=== PATIENT | female | born 1950 | race African-American/Black ===

== ENCOUNTER 2018-01-13 15:11 | Inpatient (IN) | payer OTHER, MEDICARE ==
[~2018-01-13] VITALS: Ht 165.1 cm; Wt 59.9 kg
[~2018-01-13 15:11] MED LIST: CIPRO250 M1 PO; CIPROFLOXACIN500 M1 PO; GLYBURID-METFO1 EAC3 PO; HYDROCHLOROTHIA25 M1 PO; NORCO 5-325 TA1 EACH PO; NORVASC10 MG PO; NOVOLIN 70100 UNIT/5; NOVOLOG100 UNIT/1; OCUVITE TABLET1 EAC1; OCUVITE TABLET1 EAC1 PO; PYRIDIUM200 MG PO; ZESTRIL20 MG PO; ZPAK PO
[2018-01-13 15:13] VITALS: BP 116/65
[2018-01-13] MEDS ORDERED: ZOCOR20 MG PO (15:15)
[2018-01-13] MEDS ORDERED: LEXAPRO20 MG PO (15:15)
[2018-01-13 15:50] LABS: ABSOLUTE BASOPHILS 0.1 thou/uL (0.0-0.2); ABSOLUTE EOSINOPHILS 0.1 thou/uL (0.0-0.7); ABSOLUTE LYMPHOCYTES 2.5 thou/uL (0.8-5.3); ABSOLUTE MONOCYTES 0.7 thou/uL (0.0-1.2); ABSOLUTE NEUTROPHILS 3.5 thou/uL (1.6-8.1); BASOPHILS 0.8 %; EOSINOPHILS 1.5 %; HEMATOCRIT 47.1 % (37.0-47.0); HEMOGLOBIN 16.1 gm/dL (12.0-15.0); LYMPHOCYTES 36.4 %; MCH 32.6 pg (26.0-34.0); MCHC 34.2 g/dL (28.0-37.0); MCV 95.4 fL (80.0-100.0); MONOCYTES 10.7 %; NUCLEATED RBCS 0 /100WBC; PLATELET COUNT* 289 thou/uL (150-400); POLYS 50.6 %; RBC 4.94 mil/uL (4.20-5.00); WBC 6.9 thou/uL (4.0-11.0)
[2018-01-13 15:56] LABS: ANION GAP 9 mmol/L (7-16); BUN 18 mg/dL (7-18); CALCIUM 9.8 mg/dL (8.5-10.1); CHLORIDE 98 mmol/L (98-107); CO2 30 mmol/L (21-32); CREATININE 0.8 mg/dL (0.6-1.3); GLUCOSE 187 mg/dL (70-99); POTASSIUM 3.5 mmol/L (3.5-5.1); SODIUM 137 mmol/L (136-145)
[2018-01-13 16:00] LABS: APTT 24.4 Seconds (25.0-31.3); INR 1.1; PROTIME 10.4 Seconds (9.20-11.50)
[2018-01-13 16:14] LABS: ALBUMIN 4.1 g/dL (3.4-5.0); ALKALINE PHOSPHATASE 81 U/L (46-116); CK-MB MASS 2.5 ng/mL (<0.5-3.6); LIPASE 56 U/L (73-393); NT-PRO BRAIN NAT PEPTIDE 74 pg/mL (<300); SGOT 14 U/L (15-37); SGPT 22 U/L (30-65); TOTAL BILIRUBIN 0.3 mg/dL (<0.1-1.0); TOTAL PROTEIN 7.9 g/dL (6.4-8.2); TROPONIN-I LEVEL <0.06 ng/mL (<0.06)
[2018-01-13 17:49] VITALS: BP 133/63
[2018-01-13] MEDS ORDERED: NOVOLIN 70100 UNIT/5 SUBQ (17:52)
[2018-01-13] MEDS ORDERED: LANTUS100 UNIT/M SUBQ (17:53)
[2018-01-13] MEDS ORDERED: NORCO 7.5-3251 EACH PO (17:53)
[2018-01-13 20:00] VITALS: BP 125/50
[2018-01-14] VITALS (16 sets, daily range): BP systolic 105–156; BP diastolic 54–94
[2018-01-14 11:37] LABS: CHOLESTEROL 177 mg/dL (<200); HDL CHOLESTEROL 60 mg/dL (>40); LDL CHOLESTEROL 97 mg/dL (<100); TRIGLYCERIDE 103 mg/dL (<150); VLDL 21 mg/dL (<40)
[2018-01-14 11:41] LABS: SERUM ASSESSMENT Clear
--- NOTE | 2018-01-14 14:30 | EKG ---
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: Urvashi CRUZ : 1950 Requested By: Je Zuluaga Order Number: [id number] MD: Sridhar Brooke Measurements Intervals [place] Rate: 71 P: 61 WI: 158 QRS: 42 QRSD: 100 T: -44 QT: 481 QTc: 523 Interpretive Statements Sinus rhythm Nonspecific T abnormalities, inferior leads Prolonged QT interval Compared to ECG 05/17/2013 14:02:11 T-wave abnormality now present Prolonged QT interval now present Electronically Signed On 01-14-2018 14:30:31 CDT by Sridhar Brooke [email or web address] <ELECTRONICALLY SIGNED> By: Sridhar Brooke MD, [facility] 01/14/18 1430 1514 1514 Sridhar Brooke MD, [facility] /EPI
--- NOTE | 2018-01-14 15:08 | 2DMMODE ---
[place] [address] 2 D/M-MODE ECHOCARDIOGRAM Name: HERNANDEZFAY CLAIRE Room: [address] IN [facility]#: [id number] Admission: 01/13/18 Attend Phys: Christine Olguin, Discharge: Date of : 48 Date of Service: 01/14/18 1508 Report #: [id number] THIS REPORT FOR: //name// APPROVED REPORT Study performed: 01/14/2018 11:23:26 EXAM: Comprehensive 2D, Doppler, and color-flow Echocardiogram Patient Location: In-Patient Room #: 202 Status: routine BSA: 1.66 HR: 62 bpm BP: 134/59 mmHg Rhythm: NSR Other Information Study Quality: Good Indications Chest Pain 2D Dimensions LVEF(%): 42.44 (>50%) IVSd: 9.09 (7-11mm) LVOT Diam: 18.51 (18-24mm) LVDd: 42.53 mm PWd: 10.26 (7-11mm) LVDs: 33.75 (25-40mm) Aortic Root: 26.75 mm Goff's LVEF: 42.44 % Volumes Left Atrial Volume (Systole) LA ESV Index: 37.20 mL/m2 Aortic Valve AoV Peak Willy.: 1.45 m/s AO Peak Gr.: 8.46 mmHg LVOT Max P.78 mmHg AO Mean Gr.: 4.47 mmHg LVOT Mean P.15 mmHg LVOT Max V: 1.09 m/s AO V2 VTI: 32.77 cm LVOT Mean V: 0.66 m/s INKHIL (VTI): 2.14 cm2 LVOT V1 VTI: 26.02 cm Mitral Valve E/A Ratio: 1.07 [place] [address] 2 D/M-MODE ECHOCARDIOGRAM Name: FAY HERNANDEZ Room: [address] IN .R.#: [id number] Admission: 01/13/18 Attend Phys: Christine Olguin, Discharge: Date of : 48 Date of Service: 01/14/18 1508 Report #: [id number] MV Decel. Time: 192.69 ms MV E Max Willy.: 0.98 m/s MV PHT: 55.88 ms MVA (PHT): 3.94 cm2 TDI E/Lateral E': 6.53 E/Medial E': 9.80 Medial E' Willy.: 0.10 m/s Lateral E' Willy.: 0.15 m/s Pulmonary Valve PV Peak Willy.: 0.88 m/s PV Peak Gr.: 3.08 mmHg Left Ventricle The left ventricle is normal size. There is normal LV segmental wall motion. There is normal left ventricular wall thickness. Left ventricular systolic function is normal. The left ventricular ejection fraction is within the normal range. LVEF is 55-60%. The left ventricular diastolic function is normal. Right Ventricle The right ventricle is normal size. The right ventricular systolic function is normal. Atria Left atrium is mildly dilated. The right atrium size is normal. Aortic Valve The aortic valve is normal in structure. No aortic regurgitation is present. There is no aortic valvular stenosis. Mitral Valve There is mitral annular calcification. Trace mitral regurgitation. No evidence of mitral valve stenosis. Tricuspid Valve The tricuspid valve is normal in structure. Unable to assess PA pressure. Trace tricuspid regurgitation. Pulmonic Valve The pulmonary valve is normal in structure. There is no pulmonic valvular regurgitation. Great Vessels The aortic root is normal in size. IVC [place] [address] 2 D/M-MODE ECHOCARDIOGRAM Name: FAY HERNANDEZ Room: [address] IN [facility].#: [id number] Admission: 01/13/18 Attend Phys: Christine Olguin, Discharge: Date of : 48 Date of Service: 01/14/18 1508 Report #: [id number] collapses with >50% inspiration Pericardium There is no pericardial effusion. <Conclusion> LVEF is 55-60%. There is normal LV segmental wall motion. Left atrium is mildly dilated. No aortic regurgitation is present. There is no aortic valvular stenosis. There is mitral annular calcification. Trace mitral regurgitation. No evidence of mitral valve stenosis. <ELECTRONICALLY SIGNED> By: Sridhar Brooke MD, FACC 01/14/18 1508 1508 1508 Sridhar Brooke MD, FACC /INF
[2018-01-15] VITALS: BP 152/58
[2018-01-15 04:50] VITALS: BP 125/49
[2018-01-15 05:04] LABS: HEMATOCRIT 41.4 % (37.0-47.0); MCH 32.3 pg (26.0-34.0); MCHC 33.9 g/dL (28.0-37.0); RBC 4.36 mil/uL (4.20-5.00); RDW-CV 12.7 % (10.5-14.5); WBC 6.3 thou/uL (4.0-11.0)
[2018-01-15 05:10] LABS: HEMOGLOBIN 14.1 gm/dL (12.0-15.0)
[2018-01-15 05:59] LABS: ALBUMIN 2.9 g/dL (3.4-5.0); CALCIUM 8.6 mg/dL (8.5-10.1); CREATININE 0.7 mg/dL (0.6-1.3); POTASSIUM 3.7 mmol/L (3.5-5.1); TOTAL BILIRUBIN 0.3 mg/dL (<0.1-1.0); TOTAL PROTEIN 5.7 g/dL (6.4-8.2)
[2018-01-15 06:03] LABS: TROPONIN-I LEVEL 3.35 ng/mL (<0.06)
[2018-01-15 08:06] VITALS: BP 145/76
[2018-01-15 09:57] VITALS: BP 134/56
[2018-01-15] MEDS ORDERED: BRILINTA90 MG PO (10:36)
[2018-01-15] MEDS ORDERED: NITROGLYCERIN0.4 MG SUBLING (10:36)
[2018-01-15] MEDS ORDERED: ASPIR 8181 MG PO (10:36)
[2018-01-15] MEDS ORDERED: PANTOPRAZOLE SO40 M1 PO (10:36)
[2018-01-15 12:00] VITALS: BP 132/62
[2018-01-15 12:02] VITALS: BP 134/56
[2018-01-15] MEDS ORDERED: LEXAPRO 10 MG T10 M1 PO (13:59)
--- NOTE | 2018-01-16 12:52 | EKG ---
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[place] : 1950 Requested By: Maik Giordano Order Number: [id number] Berry MD: Maik Giordano Measurements Intervals [place] Rate: 57 P: 68 VA: 139 QRS: 38 QRSD: 87 T: 53 QT: 484 QTc: 472 Interpretive Statements Sinus rhythm Minimal ST elevation, inferior leads Compared to ECG 01/13/2018 15:14:58 ST (T wave) deviation now present T-wave abnormality no longer present Prolonged QT interval no longer present Electronically Signed On 01-16-2018 12:52:19 CDT by Maik Giordano [email or web address] <ELECTRONICALLY SIGNED> By: Maik Giordano MD, FAC 01/16/18 1252 1540 1540 Maik Giordano MD, FAC /EPI
--- NOTE | 2018-01-16 13:34 | CON ---
[address] [address] CONSULTATION Name: FAY HERNANDEZ Room: [address] IN M.R.#: [id number] Admission: 01/13/18 Attend Phys: Christine Olguin MD Discharge: 01/15/18 Date of : 48 Report #: [id number] THIS REPORT FOR: //name// CC: Didi Olguin DATE OF SERVICE: 01/13/2018 CHIEF COMPLAINT: Chest discomfort. HISTORY OF PRESENT ILLNESS: The patient is a 67-year-old with insulin requiring diabetes who presented with a resting onset of nausea, but no emesis and severe left chest discomfort. Her presenting ECG showed diffuse T-wave inversion. This morning, she is mostly asymptomatic, although off and on through the night she had paroxysms of nonradiating chest discomfort described as a pressure. She has some mild shortness of breath with activity, but had no prior symptoms of chest discomfort prior to hospitalization. She has numerous cardiovascular risk factors, but no documented history of heart disease. She has a history of insulin requiring diabetes since the early . She has been followed by Dr. Didi Weathers for this. She is a half pack per day tobacco smoker. She has hypertension, which she has been treated since the early 1999s as well and most recently had been placed on a statin for hyperlipidemia. She has no history of congestive heart failure. She has no history of carotid vascular disease or claudication type symptoms, but does have some leg cramps with walking. 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 PAST SURGICAL HISTORY: She has not had any recent surgeries. She has had a prior hysterectomy in the . FAMILY HISTORY: Positive for heart disease. Her father of an [place]. SOCIAL HISTORY: She is . 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 She drinks 1-3 glasses of wine per day and the one-half pack per day of tobacco use. HOME MEDICATIONS: Include Novolin 70/30, hydrochlorothiazide, Lexapro, amlodipine, metformin, hydrocodone. REVIEW OF SYSTEMS: CENTRAL NERVOUS SYSTEM: No seizures, no history of stroke or TIA. No weakness or paralysis[place] [address] CONSULTATION Name: FAY HERNANDEZ Room: [address]#: [id number] Admission: 01/13/18 Attend Phys: Christine Olguin MD Discharge: 01/15/18 Date of : 48 Report #: [id number] GENERAL: No weight loss or fevers. RESPIRATORY: She has no documented history of asthma or emphysema. She has no history of pneumonia. CARDIOVASCULAR: Positive chest discomfort, positive dyspnea with exertion, no orthopnea, no PND. ENDOCRINE: Positive diabetes. GASTROINTESTINAL: No nausea, vomiting, hematemesis, melena or ulcers. GENITOURINARY: No dysuria or hematuria. HEMATOLOGIC: No anemia. RENAL: No history of kidney failure. PSYCHIATRIC: No depression or anxiety. MUSCULOSKELETAL: Positive arthritis. SKIN: No rashes. EYES: She does use glasses. EARS, NOSE, THROAT AND MOUTH: No decreased hearing. No bleeding from nose. Positive dentures. PHYSICAL EXAMINATION: VITAL SIGNS: Blood pressure 134/59, pulse is 60 in a sinus rhythm, temperature 36.6, respiratory rate is 18, oxygen on room air is greater than 92%. GENERAL: Pleasant, thin woman, in no apparent distress. EYES: She has the noted ocular changes in the right eye with haziness and opacity. EOMs are intact otherwise. NECK: Supple. No jugular venous distention. Upstrokes are normal. CARDIOVASCULAR: Regular, I cannot hear a murmur or rub. LUNGS: Diminished breath sounds. There are no wheezes or rales. ABDOMEN: Nontender. EXTREMITIES: There is no peripheral edema. Pulses, radial and dorsalis pedis pulses are intact and normal. NEUROLOGIC: There are no focal deficits. Electrocardiogram shows a sinus rhythm with T-wave inversion in the inferior and lateral leads, poor R-wave progression. LABORATORY DATA: Initial cardiac troponin level was normal at 0.06. She has had 3 sets, which were all normal. INR is 1.1. Hemoglobin is 16.1, platelet count is 289,000. Creatinine is 0.8, GFR is 86. Chest x-ray shows normal chest x-ray. IMPRESSION: 1. Unstable angina. Her rest chest discomfort associated with nausea is concerning for angina and she does have an abnormal ECG on presentation, numerous cardiovascular risk factors. Based on her rest symptoms, I am concerned that she may not be able to safely be evaluated with a stress test, so after discussing the risks and benefits, we will proceed with a diagnostic cardiac catheterization. Continue with aspirin therapy. [address] [place] [address] CONSULTATION Name: FAY HERNANDEZ Room: [facility] [place] M.R.#: [id number] Admission: 01/13/18 Attend Phys: Christine Olguin MD Discharge: 01/15/18 Date of : 48 Report #: [id number] 2. Hypertension. We will continue with the calcium channel arabella for the time being. 3. Hyperlipidemia. We will re-survey lipids and treat accordingly. 4. Insulin requiring diabetes. She will continue with sliding scale insulin for the time being while she is n.p.o. 5. Tobacco use. Cessation is strongly recommended. Primary care doctor is Dr. Didi Weathers. <ELECTRONICALLY SIGNED> By: Sridhar Brooke MD, FACC 01/16/18 1334 1040 1606Sridhar Brooke MD, FACC /nt
--- NOTE | 2018-01-16 14:40 | CARD ---
[address] [address] CARDIAC CATH REPORT Name: FAY HERNANDEZ Room: [address] IN ..#: [id number] Admission: 01/13/18 Attend Phys: Christine Olguin MD Discharge: 01/15/18 Date of : 48 Report #: [id number] THIS REPORT FOR: //name// APPROVED REPORT Study performed: 01/14/2018 12:56:50 Patient Details Patient Status: In-Patient Room #: 202 The patient is a 67 year-old female Event Personnel Sridhar Brooke Press Tender [employer], Laurie Mariscal RN Family Health Nurse Practitioner, Liz Garcia, Tracy Jay RTR Pasquale Jaime John Press Tender [employer] Procedures Performed Art Access - R radial artery Left Heart Cath w/or w/o Coronaries [id number] [facility] w/wo Plasty Single PDA [id number] Indication Non-STEMI , Chest pain Risk Factors Hypercholesterolemia, Hypertension Admission/Lab Medications/Medications given during procedure Aspirin, Platelet Aff. Inhib., Angiomax bolus and infusion Procedure Narrative The patient was brought electively to the Cardiac Catheterization Laboratory and was prepped and draped in a sterile manner. The right wrist was infiltrated with 2% Lidocaine subcutaneous anesthesia. A Slender Glidesheath sheath was inserted into the right radial artery. Coronary angiography was performed using coronary diagnostic catheters. The right coronary system was accessed and visualized with a DCR: [place] 4.0 5fr catheter. The left coronary system was accessed and visualized with a JL4 6fr catheter. The left ventricle was accessed and visualized with a PC: Angled Pig 5fr catheter. Left ventricular/Aortic Valve gradient assessed via catheter pullback. Left ventriculogram was performed in PALOMARES projection. The patient tolerated the procedure well and there were no complications associated with the procedure. [place] [address] CARDIAC CATH REPORT Name: FAY HERNANDEZ Room: [address]#: [id number] Admission: 01/13/18 Attend Phys: Christine Olguin MD Discharge: 01/15/18 Date of : 48 Report #: [id number] Intraoperative Conscious Sedation Sedation start time: 13:39 Case end Time: 15:20 Fentanyl 25 mcg Versed 1 mg Fluoro Time: 34.6 minutes Dose: DAP [id number] cGycm2 3167.23 mGy Contrast Type and Amount: Omnipaque 300 ml Coronary Angiography The patient's coronary anatomy is right dominant. Diagnostic Cath Left Main 0% narrowing LAD Mild tortuosity with 40% mid vessel narrowing Circumflex 30% proximal narrowing Right Coronary 40% mid vessel narrowing with 90% stenosis at the origin of the posterior descending branch of the dominant artery artery with local thrombus at the site Left Ventriculography The left ventricle is normal in size with normal contractility. The left ventricular ejection fraction is estimated to be 60%. Left ventricular wall motion abnormalities are not present. There is no mitral insufficiency. Hemodynamics The aortic pressure is 150/86 mmHg with a mean of mmHg. The left ventricular pressure is 172/28 mmHg with a mean of mmHg. The left ventricular end diastolic pressure is 8 mmHg. There was no gradient across the aortic valve upon pullback. Pullback from the left ventricle to the aorta revealed no gradient across the aortic valve. PCI Technique Lesion Percutaneous coronary intervention was performed on the right posterior descending artery. The lesion stenosis prior to intervention was 90% with ADIN 3 flow. A 6F JR 4.0 Guide Catheter was used to engage the ostium. A IG: BMW 190cm Interventional Guidewire was used to cross the lesion. STENT DEPLOYMENT A drug-eluting stent Xience Alpine RX 2.5X8 was inserted and inflated up to 10.00atm for 12seconds. Additional Inflation: 12.00atm for 12seconds. Additional Inflation: 12.00atm for 9[place]. [place] [address] CARDIAC CATH REPORT Name: FAY HERNANDEZ Room: [address] IN M.R.#: [id number] Admission: 01/13/18 Attend Phys: Christine Olguin MD Discharge: 01/15/18 Date of : 48 Report #: [id number] Final angiography reveals 0 % stenosis with ADIN 3 flow. COMMENTS Previously noted thrombus at the origin of the posterior descending branch was no longer noted after deployment of a drug-eluting stent at that site. Conclusion #1 Coronary artery disease characterized by the following: A mild tortuosity with 40% mid LAD narrowing B 30% proximal circumflex narrowing C dominant right coronary artery with 40% mid vessel narrowing and 90% stenosis of the proximal portion of the posterior descending branch with local thrombus at the site #2 normal left ventricular systolic function, estimated ejection fraction being 60% #3 moderate systemic systolic hypertension #4 successful percutaneous coronary intervention with deployment of drug-eluting stent at the site of 90% ostial posterior descending branch stenosis in the dominant right coronary artery with 0% residual narrowing and ADIN-3 flow the distal vessel with no residual thrombus Recommendations Cardiac Risk Reduction Program Aggressive Medical Therapy Medications Administered Aspirin (any) Ticagrelor Diagnostic Cath Approved by: Sridhar Brooke MD Date/Time: 01/16/18 at 1438 hrs. <ELECTRONICALLY SIGNED> By: Maik Giordano MD, FACC 01/16/18 1440 1440 1440Joveena Giordano MD, FACC /INF
--- NOTE | 2018-01-16 14:50 | EKG ---
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 01/16/18 9669 5 5 Maik Giordano MD, [facility] /EPI
== END 2018-01-15 17:15 | disposition home or self-care (01) | DRG 247 ==
LOC: M.ERS 15:11 → M.TBA-ER 17:22 → M.2W 17:22 → M.ERS 17:51 → M.2W 17:59
PROVIDERS: Emergency Medicine Emergency Medical Services; Internal Medicine; Internal Medicine Cardiovascular Disease; ADMIT Internal Medicine
PROC: B2111ZZ Fluoroscopy of Multiple Coronary Arteries using Low Osmolar Contrast (ICD-10-PCS; principal; 2018-01-14)
PROC: B2151ZZ Fluoroscopy of Left Heart using Low Osmolar Contrast (ICD-10-PCS; principal; 2018-01-14)
PROC: 027034Z Dilation of Coronary Artery, One Artery with Drug-eluting Intraluminal Device, Percutaneous Approach (ICD-10-PCS; principal; 2018-01-14)
PROC: 4A023N7 Measurement of Cardiac Sampling and Pressure, Left Heart, Percutaneous Approach (ICD-10-PCS; principal; 2018-01-14)
DX: I25.110 Atherosclerotic heart disease of native coronary artery with unstable angina pectoris (principal); E78.00 Pure hypercholesterolemia, unspecified; I10 Essential (primary) hypertension; K21.9 Gastro-esophageal reflux disease without esophagitis; J44.9 Chronic obstructive pulmonary disease, unspecified; F32.9 Major depressive disorder, single episode, unspecified; F17.210 Nicotine dependence, cigarettes, uncomplicated; E78.5 Hyperlipidemia, unspecified; E11.9 Type 2 diabetes mellitus without complications; Z79.4 Long term (current) use of insulin; Z79.899 Other long term (current) drug therapy; Z79.82 Long term (current) use of aspirin; Z91.040 Latex allergy status; Z90.710 Acquired absence of both cervix and uterus; Z82.49 Family history of ischemic heart disease and other diseases of the circulatory system

== ENCOUNTER → 2018-02-06 | Outpatient (CLI) | payer OTHER, MEDICARE ==
[~2018-02-06] MED LIST changes: +ASPIR 8181 MG PO; +BRILINTA90 MG PO; +LANTUS100 UNIT/M SUBQ; +LEXAPRO 10 MG T10 M1 PO; +LEXAPRO20 MG PO; +NITROGLYCERIN0.4 MG SUBLING; +NORCO 7.5-3251 EACH PO; +NOVOLIN 70100 UNIT/5 SUBQ; +PANTOPRAZOLE SO40 M1 PO; +ZOCOR20 MG PO
== END ==
LOC: M.RAD 14:06
DX: M25.551 Pain in right hip (principal); R20.0 Anesthesia of skin; E11.9 Type 2 diabetes mellitus without complications; J44.9 Chronic obstructive pulmonary disease, unspecified; F32.9 Major depressive disorder, single episode, unspecified; Z90.710 Acquired absence of both cervix and uterus; Z87.891 Personal history of nicotine dependence

== ENCOUNTER → 2018-02-14 | Outpatient (CLI) | payer MEDICARE | LOC: M.MRI 13:04 | DX: M25.851 Other specified joint disorders, right hip (principal) ==

== ENCOUNTER → 2018-02-21 | Outpatient (CLI) | payer MEDICARE | LOC: M.MRI 08:00 | DX: M47.26 Other spondylosis with radiculopathy, lumbar region (principal); M51.16 Intervertebral disc disorders with radiculopathy, lumbar region; M48.062 Spinal stenosis, lumbar region with neurogenic claudication; E11.9 Type 2 diabetes mellitus without complications; J44.9 Chronic obstructive pulmonary disease, unspecified ==

== ENCOUNTER → 2018-11-25 | Outpatient (CLI) | payer MEDICARE ==
[~2018-11-25] MED LIST changes: +ATORVASTATIN CA40 MG PO; +MEDROLDOSEPACK PO; +METFORMIN HCL500 MG PO; +NORVASC5 MG PO
--- NOTE | ~2018-11-25 | PAINCON ---
[address] [address] PAIN MANAGEMENT CONSULTATION Name: FAY HERNANDEZ [facility] [id number] Admission: 11/25/18 Attend Phys: Ashley Smith MD Discharge: Date of : 48 Report #: [id number] THIS REPORT FOR: //name// CC: Didi Smith DATE OF SERVICE: 11/25/2018 CHIEF COMPLAINT: Back pain. HISTORY OF PRESENT ILLNESS: The patient is a 68-year-old female who has been referred to the pain clinic for evaluation. The patient states that she has noticed pain and discomfort since 2018. She has noticed a slow increase in pain and discomfort. Prolonged standing exacerbates her pain. Sitting improves the pain. The patient states that she sometimes is awakened by the pain. Has pain that radiates down into her low back and down into her right leg. This can extend all the way down into her toes. Pain is worse when she is walking. She is not sure that anything makes it better. Describes as continuous, steady, constant, cramping, aching, and rates it as a 10/10 at this juncture. She states that she had an MRI. She was told that she has some spinal stenosis. She was given a Medrol Dosepak and noticed about 1-2 months of improvement. She does have diabetes. Did note some elevation of her blood sugar at that time. ALLERGIES: LATEX, LISINOPRIL. CURRENT MEDICATIONS: Norvasc 5 mg, aspirin 81 mg, Lipitor 40 mg, Lexapro 20 mg, hydrochlorothiazide 25 mg, hydrocodone 5/325, metformin 500 mg b.i.d., nitroglycerin sublingual, Brilinta, blood thinner. PAST MEDICAL HISTORY: Diabetes, hypertension, heart disease, joint disease/arthritis, hyperlipidemia, and right hip pain. PAST SURGICAL HISTORY: Hysterectomy in 1992. The patient states that she had a stent placement in the right side of her heart. Corneal transplant. The patient has had eye surgery on the right eye. 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 REVIEW OF SYSTEMS: Generally good health, eye disease, wears glasses, heart trouble, joint pain, joint stiffness, weakness of muscles, muscle pain, back pain, difficulty walking, numbness and tingling sensation, and depression. LABORATORY DATA: MRI of the lumbar spine dated 02/21/2018: 1. There is a generalized disk bulge with severe hypertrophic posterior facet joint changes and ligament changes and ligamentum flav[place] [address] PAIN MANAGEMENT CONSULTATION Name: FAY HERNANDEZ [id number] Admission: 11/25/18 Attend Phys: Ashley Smith MD Discharge: Date of : 48 Report #: [id number] midline AP diameter of the thecal sac measures 7 mm consistent with moderate central spinal stenosis. The disk bulge is slightly more eccentric toward the left and results in a moderate left-sided neural foraminal narrowing. 2. At L4-L5, there is a generalized disk bulge with severe hypertrophic posterior facet degenerative changes and ligamentum flavum hypertrophy. A midline AP dimensions of the thecal sac narrowed to 7 mm consistent with moderate central spinal stenosis. 3. ____ left-sided neural foraminal narrowing. 4. L5-S1, there is a mild generalized disk bulge without central spinal stenosis or neural foraminal narrowing. PAIN CLINIC ASSESSMENT AND PQRS 1. The patient is not being treated for rheumatoid arthritis. The patient does have some hip pain and osteoarthritic type discomfort. 2. Height 5 feet 5 inches, weight 137 pounds, BMI is 23.0. 3. Vital signs: Blood pressure 146/67, heart rate 68, respiratory rate 16, room air saturation 93%, temperature is 98.2. 4. Pain intensity: 9/10. 5. Fall risk. The patient has not fallen in the last 3 months, but notes sometimes almost losing her balance secondary to shooting pain into her leg. 6. Blood thinner. The patient is not on a blood thinning medication. 7. Hypertension. The patient is being treated for hypertension. 8. Opioids greater than 6 weeks. The patient is not an opioid regimen. 9. Risk assessment tool, low for opioid use. 10. Functional assessment tool. 11. Recreational drug use is 38/70. 12. Tobacco: The patient has not smoked for the last 40 years and currently smokes 1-1/2 packs of cigarettes per day. 13. Alcohol: The patient denies use of alcoholic beverages. PHYSICAL EXAMINATION: GENERAL: The patient is a well-developed, well-nourished black female, appears her stated age. She is alert and oriented x 3. Her affect is appropriate. Speech is fluent. HEENT: The patient has blindness of the right eye. States that she had some surgery in this eye because of diabetes, it failed. Hearing is within normal limits. Mucous membranes are moist. NECK: Without adenopathy or JVD. HEART: Regular rate. S1, S2. LUNGS: Clear to auscultation. ABDOMEN: Nontender. EXTREMITIES: Upper extremity muscle strength is judged to be 4+/5 for the major muscle groups in the upper extremity. Deep tendon reflexes are +1 for the biceps bilaterally. The patient without significant scoliosis or lordosis. The patient has somewhat of a kyphotic upper chest area. Lower extremity muscle strength is judged to be 5-/5 for the major muscle [place] [address] PAIN MANAGEMENT CONSULTATION Name: DAVIDFAY DAKOTAH Room: [facility] AnandAmada#: [id number] Admission: 11/25/18 Attend Phys: Ashley Smith MD Discharge: Date of : 48 Report #: [id number] extremity. The patient notes some increased pain and discomfort with the Giacomo's maneuver. Anterior and posterior spring tests were negative. Deep tendon reflexes are +3 at the knees bilaterally. Absent at the ankles. IMPRESSION: 1. Lumbar radiculopathy in the right L4-L5 dermatomal distribution on the right. 2. Diabetes. 3. Hypertension. 4. Heart disease. 5. Joint disease/arthritis. 6. Hyperlipidemia. 7. Right hip pain. RECOMMENDATIONS: We discussed treatment option with the patient. At this juncture, a model was used to indicate the area of probable pathology. We reviewed line for line and the radiologic images of her MRI regarding the pathology in her low back area. She and her daughter stated that they could understand having reviewed these items. A video regarding spinal stenosis and lumbar radiculopathy was shown to the patient for information regarding spinal stenosis. We provided the patient with options. They include a conservative approach at this time with use of a Medrol Dosepak or an epidural injection. Risks and benefits of the injection, which could include but are not limited to infection, worsening of pain, no improvement in pain, nerve damage, paresis, spinal headache were discussed and the patient at this point elects to try a conservative approach with a Medrol Dosepak. She has provided a Medrol Dosepak. She will follow up in the near future as needed. We would like to thank you for letting us participate in her care. We hope she continues to improve. By: [id number]. Janes Smith MD /nt
== END ==
LOC: M.PC 09:10
DX: M54.16 Radiculopathy, lumbar region (principal); E11.9 Type 2 diabetes mellitus without complications; I11.9 Hypertensive heart disease without heart failure; M19.90 Unspecified osteoarthritis, unspecified site; E78.5 Hyperlipidemia, unspecified; Z79.84 Long term (current) use of oral hypoglycemic drugs; Z91.040 Latex allergy status; Z88.8 Allergy status to other drugs, medicaments and biological substances; Z79.899 Other long term (current) drug therapy; Z90.710 Acquired absence of both cervix and uterus

== ENCOUNTER → 2018-12-30 | Outpatient (CLI) | payer MEDICARE ==
--- NOTE | ~2018-12-30 | PAINCON ---
[address] [address] PAIN MANAGEMENT CONSULTATION Name: FAY HERNANDEZ Room: [facility] NIK Anand.#: [id number] Admission: 12/30/18 Attend Phys: Ashley Smith MD Discharge: Date of : 48 Report #: [id number] THIS REPORT FOR: //name// CC: Didi Smith DATE OF SERVICE: 12/30/2018 CHIEF COMPLAINT: The Medrol Dosepak did not help a whole lot. HISTORY: The patient is a 68-year-old female who has been seen in the pain clinic because of pain and discomfort. She has been experiencing pain since 2018. She has noticed a continued increase in pain in the lower portion of her right buttocks with pain that radiates down the posterior portion of her thigh and down into her calf. Notes that the pain is worse with certain activities. She sometimes awakened by the pain. Pain is worse while she is walking. She was provided a Medrol Dosepak at the last visit. She is not sure that there was a significant improvement in pain. She did note an increase in her blood sugars. She is a diabetic. Takes her sugars on a regular basis and treats them using insulin. She was able to treat her blood sugar levels after the Medrol Dosepak with sliding scale of insulin. She rates her pain as a 9/10. She has returned to the pain clinic with a hope of undergoing an epidural steroid injection. Hydrocodone can be beneficial. ALLERGIES: LATEX, LISINOPRIL. CURRENT MEDICATIONS: Norvasc 5 mg, aspirin 81 mg, Lipitor 40 mg, Lexapro 20 mg, hydrocodone 5/325, metformin 500 mg b.i.d., nitroglycerin sublingual, [place], blood thinner medication. PAIN CLINIC ASSESSMENT/PQRS: 1. The patient is not being treated for osteoarthritis. She has not been treated for rheumatoid arthritis. 2. Height 5 feet 5 inches, weight 146 pounds, BMI is 24.7. 3. Vital signs: Blood pressure 118/62, heart rate 74, respiratory rate 16, room air saturation 94%, temperature 98/6. 4. Pain intensity /10. 5. Fall history: The patient has not fallen in the last 3 months. 6. Blood thinner. The patient is not on a blood thinning medication. 7. Hypertension. The patient is being treated for hypertension. 8. Opiates greater than 6 weeks. The [facility]. 9. Risk assessment tool, low for opioid use. 10. Functional assessment tool. 11. Tobacco use. The patient has a 60-jgco-zrvi smoking history, [place] [address] PAIN MANAGEMENT CONSULTATION Name: FAY HERNANDEZ Room: [facility]#: [id number] Admission: 12/30/18 Attend Phys: Ashley Smith MD Discharge: Date of : 48 Report #: [id number] one-half pack of cigarettes per day. The patient denies use of recreational drugs. 12. Alcohol: The patient occasionally drinks an alcoholic beverage. PHYSICAL EXAMINATION: GENERAL: The patient is a well-developed, well-nourished black female, appears her stated age. She is alert and oriented x 3. Her affect is appropriate. Speech is fluent. HEENT: Normocephalic, atraumatic. Extraocular eye muscles intact. 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 States that she has had this since loss of sight because of diabetes. Hearing is within normal limits. Mucous membranes are moist. NECK: Without adenopathy or JVD. HEART: Regular rate. S1, S2. LUNGS: Clear to auscultation. ABDOMEN: Nontender. EXTREMITIES: Upper extremity muscle strength is judged to be 4+/5 for the major muscle groups in the upper extremity. The patient without significant scoliosis, kyphosis, or lordosis. The patient has pain and discomfort in the lower portion of her back and with pain that radiates from the lower back into the right buttocks down into the posterior portion of the leg involving the calf with numbness, tingling, and weakness. IMPRESSION: 1. Lumbar radiculopathy on the right today in the L5-S1 dermatomal distribution. 2. Diabetes. 3. Hypertension. 4. Heart disease. 5. Joint disease/arthritis. 6. Hyperlipidemia. 7. Right hip pain. RECOMMENDATIONS: We discussed treatment options with the patient. At this point, she feels that her pain continues to be problematic. She rates it as a 9/10. She has had no complications from use of the Medrol Dosepak. She did note some increased levels of blood sugars, which she was able to modulate using insulin. She has returned today because of the chronic pain and would like to proceed with the next treatment course, which would be an epidural steroid injection. We had discussed the risks and benefits of an epidural steroid injection the patient in the past. We then reviewed them. They include but are not limited to infection, worsening of pain, no improvement in pain, bleeding, and spinal headache. The patient elects to proceed. PROCEDURE NOTE: The patient was taken to the procedure area. She was then assisted in getting on the examination table. Her [place] [address] PAIN MANAGEMENT CONSULTATION Name: FAY HERNANDEZ Room: [facility] Anand.#: [id number] Admission: 12/30/18 Attend Phys: Ashley Smith MD Discharge: Date of : 48 Report #: [id number] with a Betadine solution. Fluoroscopy using anterior, posterior as well as lateral viewing were implemented. Her back had been sterilely prepped with a Betadine solution. A 17-gauge Tuohy with loss of resistance technique was used to gain access to the epidural space at the L5-S1 area. After this area had been infiltrated with 0.25% bupivacaine using a 25-gauge needle. A total of 80 mg Depo-Medrol, 40 mg triamcinolone, and 2 mL of 0.25% bupivacaine was infiltrated at the L4-L5 area. The patient remained in the pain clinic for an appropriate amount of time. Her pain decreased from 9 to 0 at the time of discharge. She will monitor her blood glucose levels and treated appropriately with insulin. She will call us if she has any concerns. We would like to thank you for letting us participate in her care. We hope she continues to improve. By: [id number]. Janes Smith MD /PMT
--- NOTE | ~2018-12-30 | PAINCON ---
[address] [address] PAIN MANAGEMENT CONSULTATION Name: FAY HERNANDEZ DAKOTAH Room: [facility] STACY Mcclellan#: [id number] Admission: 12/30/18 Attend Phys: Ashley Smith MD Discharge: Date of : 48 Report #: [id number] THIS REPORT FOR: //name// CC: Didi Smith DATE OF SERVICE: 12/30/2018 PRIMARY CARE PHYSICIAN: Didi Weathers MD CHIEF COMPLAINT: "I am still having pain down in my left leg with numbness down the DICTATION ENDS HERE By: [id number]. Janes Smith MD /[facility]
== END | disposition home or self-care (01) ==
LOC: M.PC 05:42
DX: M54.16 Radiculopathy, lumbar region (principal); G89.29 Other chronic pain; I11.9 Hypertensive heart disease without heart failure; E11.9 Type 2 diabetes mellitus without complications; M19.90 Unspecified osteoarthritis, unspecified site; E78.5 Hyperlipidemia, unspecified; Z91.040 Latex allergy status; Z88.8 Allergy status to other drugs, medicaments and biological substances; Z79.891 Long term (current) use of opiate analgesic; Z79.82 Long term (current) use of aspirin

== ENCOUNTER → 2019-03-18 | Outpatient (CLI) | payer MEDICARE | LOC: M.RAD 10:16 | DX: S92.511A Displaced fracture of proximal phalanx of right lesser toe(s), initial encounter for closed fracture (principal); X58.XXXA Exposure to other specified factors, initial encounter; Y93.89 Activity, other specified; Y92.89 Other specified places as the place of occurrence of the external cause; Y99.8 Other external cause status ==

== ENCOUNTER → 2019-10-15 | Outpatient (CLI) | payer MEDICARE ==
[~2019-10-15] MED LIST changes: +HYDROCODON-ACE1 EAC7 PO
--- NOTE | 2019-10-21 15:09 | PAINCON ---
[address] [address] PAIN MANAGEMENT CONSULTATION Name: FAY HERNANDEZ Room: [facility].#: [id number] Admission: 10/15/19 Attend Phys: Ashley Smith MD Discharge: Date of : 48 Report #: [id number] THIS REPORT FOR: //name// cc: Didi Weathers MD, Katrina MD ~ THIS REPORT FOR: //name// CC: Didi Smith DATE OF SERVICE: 10/15/2019 CHIEF COMPLAINT: Return of low back pain with pain down the right buttocks. HISTORY: The patient is a 69-year-old female who has been followed in the pain clinic. She has undergone epidural steroid injection because of lumbar radiculopathy. She noticed that the pain did very well. She underwent the injection in 12/2018. Over the last 3 weeks, she has just noticed a return of pain and discomfort. She received 100% improvement in the pain. She has returned today with the thought of undergoing another injection to help decrease her discomfort. She states that the pain is radiating down her right hagan and wakes her up at night. She rates it as a 10/10. ALLERGIES: LASIX, LISINOPRIL. CURRENT MEDICATIONS: Norvasc 5 mg, aspirin 81 mg, Lipitor 40 mg, Lexapro 20 mg, hydrocodone 5 mg, metformin 500 mg b.i.d., nitroglycerin sublingual, the patient has used a blood thinner Brilinta. PAIN CLINIC ASSESSMENT AND PQRS: 1. Height 5 feet 5 inches, weight 140 pounds, BMI is 23.3. 2. Vital Signs: Blood pressure 155/71, heart rate 66, respiratory rate 16, room air saturation 96%, temperature is 97.9. 3. Pain intensity 10/10. 4. Fall history: The patient has not fallen in the last 3 months. 5. Blood thinner. The patient is not on a blood thinning medication. 6. Hypertension. PLAN: 1. The patient has been treated for hypertension. 2. Opioids greater than 6 weeks. The patient receives medication from her primary. 3. Risk assessment tool for opioid use, low for opioid use. 4. Functional assessment tool. 5. Tobacco: The patient has smoked 18-jtnz-ejkr history, smokes 1-1/2 pack of cigarettes per day. Denies use of [place] [address] PAIN MANAGEMENT CONSULTATION Name: FAY HERNANDEZ Room: [facility]#: [id number] Admission: 10/15/19 Attend Phys: Ashley Smith MD Discharge: Date of : 48 Report #: [id number] 6. Alcohol: The patient occasionally drinks an alcoholic beverage. PHYSICAL EXAMINATION: GENERAL: The patient is a well-developed, well-nourished black female, appears her stated age. She is alert and oriented x 3. Her affect is appropriate. Speech is fluent. HEENT: The patient has blindness in her right eye. It resulted from diabetes. Hearing is within normal limits. Mucous membranes are moist. NECK: Without adenopathy or JVD. HEART: Regular rate. S1, S2. LUNGS: Clear to auscultation. EXTREMITIES: Nontender. The patient has pain and discomfort in the low back area with pain radiating down into the right buttocks involving the calf with numbness and tingling in the L5-S1 dermatomal distribution. IMPRESSION: 1. Recurrence of lumbar radiculopathy at L5-S1 dermatomal distribution. 2. Diabetes. 3. Hypertension. 4. Heart disease. 5. Joint disease/arthritis. 6. Hyperlipidemia. 7. Right hip pain. RECOMMENDATIONS: We discussed treatment options with the patient. At this juncture, we have been instructed by the regional anesthesia association to defer injections unless they are absolutely necessary. The patient continues to have pain with walking, sitting, standing, climbing stairs. At this juncture, we will try a conservative approach. We will consider using hydrocodone 5 mg 1 p.o. t.i.d. If her pain should continue to be quite problematic and limits her ability to ambulate. We will again addressed the possibility of an epidural steroid injection. We explained that steroid medications can decrease one's immunity. Given that the COVID-19 virus is rampant and problematic. We will only do injections if they are felt to be absolutely necessary. The patient will try the conservative approach with hydrocodone. She will also continue with Advil and Excedrin. Should her pain continue to be problematic and significantly impairs her ability to engage in activities, we would then consider an epidural steroid injection. We would like to thank you for letting us participate in her care. We hope she continues to improve. <ELECTRONICALLY SIGNED> By: Ashley Smith MD 10/21/19 [id number]. Janes Smith MD /PMT
== END ==
LOC: M.PC 08:56
DX: M54.17 Radiculopathy, lumbosacral region (principal); E11.9 Type 2 diabetes mellitus without complications; I10 Essential (primary) hypertension; M19.90 Unspecified osteoarthritis, unspecified site; E78.5 Hyperlipidemia, unspecified; M25.551 Pain in right hip; F11.20 Opioid dependence, uncomplicated; Z79.01 Long term (current) use of anticoagulants; Z79.899 Other long term (current) drug therapy

== ENCOUNTER → 2019-11-10 | Outpatient (CLI) | payer MEDICARE | END | disposition home or self-care (01) | LOC: M.PC 03:00 | DX: M54.16 Radiculopathy, lumbar region (principal); G89.29 Other chronic pain; E11.9 Type 2 diabetes mellitus without complications; Z98.890 Other specified postprocedural states; Z79.899 Other long term (current) drug therapy; Z88.8 Allergy status to other drugs, medicaments and biological substances; Z91.040 Latex allergy status ==

== ENCOUNTER → 2019-12-15 | Outpatient (CLI) | payer MEDICARE ==
[~2019-12-15] MED LIST changes: +HYDROCODONE-AP1 EA11 PO
--- NOTE | ~2019-12-15 | PAINCON ---
[address] [address] PAIN MANAGEMENT CONSULTATION Name: FAY HERNANDEZ [facility]#: [id number] Admission: 12/15/19 Attend Phys: Ashley Smith MD Discharge: Date of : 48 Report #: [id number] THIS REPORT FOR: //name// cc: Didi Weathers MD, Katrina MD ~ THIS REPORT FOR: //name// CC: Didi Smith DATE OF SERVICE: 12/15/2019 CHIEF COMPLAINT: Upper right leg, right buttocks and low back pain. HISTORY: The patient is a 69-year-old female who has been seen in the Pain Clinic because of lumbar radiculopathy. She underwent an epidural steroid injection and noticed improvement. She feels her pain is about 50% improved since the last injection. Pain is more problematic on the right side. She did notice some elevation of her blood sugars. Her A1c is 10.1. Notes that her pain is worse when she is walking, sitting, standing, climbing stairs, and bending. She has returned today and would like to have a renewal of her medications. ALLERGIES: LASIX, LISINOPRIL. CURRENT MEDICATIONS: Norvasc 5 mg, aspirin 81 mg, Lipitor 40 mg, Lexapro 20 mg, hydrocodone 5 mg, metformin 500 mg b.i.d., nitroglycerin sublingual, and the patient has used Brilinta. PAIN CLINIC ASSESSMENT/PQRS: 1. Height 5 feet 5 inches, weight 135 pounds, BMI is 23.2. 2. Vital Signs: Blood pressure 134/70, heart rate 68, respiratory rate 16, room air saturation 97%, and temperature 97.5. 3. Pain intensity, 10. 4. Fall history: The patient has not fallen in the last 3 months. 5. Blood thinner. The patient has used Brilinta. 6. Hypertension. The patient is being treated for hypertension. 7. Opioids greater than 6 weeks. The patient receives medication from her primary physician. 8. Risk assessment tool, low for opioid use. 9. Functional assessment tool has been reviewed. 10. Recreational drug use. The patient denies. 11. Tobacco: The patient has smoked for the last 40 years. Smokes 1-1/2 pack of cigarettes per day. Denies use of recreational drugs. 12. Alcohol. The patient denies other [place] [address] PAIN MANAGEMENT CONSULTATION Name: FAY HERNANDEZ Room: [facility]#: [id number] Admission: 12/15/19 Attend Phys: Ashley Smith MD Discharge: Date of : 48 Report #: [id number] beverages. PHYSICAL EXAMINATION: GENERAL: The patient is a well-developed, well-nourished black female, appears her stated age. She is alert and oriented x 3. Her affect is appropriate. Speech is fluent. HEENT: Normocephalic, atraumatic. Extraocular eye muscles intact. The patient is blind on the right eye as a result of diabetes. NECK: Without adenopathy or JVD. HEART: Regular rate. LUNGS: Generally clear. EXTREMITIES: Upper extremity muscle strength is judged to be 5/5 for the major muscle groups in the upper extremity. The patient complains of some pain and discomfort that radiates down the right buttock area. IMPRESSION: 1. History of lumbar radiculopathy in the L5-S1 dermatomal distribution, improved after last epidural steroid injection. 2. Diabetes. 3. Hypertension. 4. Heart disease. 5. Joint disease/arthritis. 6. Spinal stenosis. 7. Hyperlipidemia. 8. Right hip pain. RECOMMENDATIONS: We discussed treatment options with the patient. At this juncture, we will continue with her medications. She feels that the epidural steroid injection was helpful. Her last A1c is 4. She recalls as 10.1. We explained the need to be more vigilant on blood sugars. The patient's pain today is 6/10. It usually is an 8. We have provided the patient with renewal of her medication. She will continue with hydrocodone 7.5 mg 1 p.o. t.i.d. She has been provided with medication for the next 2 months. She will call us if she has any concerns. She is aware that opioid medications can become less effective as time goes on because of the development of tolerance. We would like to thank you for letting us participate in her care. We hope she continues to improve. By: [id number]. Janes Smith MD /urban
== END ==
LOC: M.PC 04:21
PROVIDERS: ATTEND Anesthesiology Pain Medicine
DX: M54.17 Radiculopathy, lumbosacral region (principal); M48.061 Spinal stenosis, lumbar region without neurogenic claudication; I11.9 Hypertensive heart disease without heart failure; E11.9 Type 2 diabetes mellitus without complications; E78.5 Hyperlipidemia, unspecified; M19.90 Unspecified osteoarthritis, unspecified site; M25.551 Pain in right hip; Z79.899 Other long term (current) drug therapy

== ENCOUNTER → 2020-02-09 | Outpatient (CLI) | payer MEDICARE ==
--- NOTE | 2020-02-23 08:25 | PAINCON ---
[address] [address] PAIN MANAGEMENT CONSULTATION Name: FAY HERNANDEZ Room: [facility]#: [id number] Admission: 02/09/20 Attend Phys: Ashley Smith MD Discharge: Date of : 48 Report #: [id number] THIS REPORT FOR: //name// cc: Didi Weathers MD, Katrina MD ~ THIS REPORT FOR: //name// CC: Didi Smith DATE OF SERVICE: 02/09/2020 CHIEF COMPLAINT: Right buttocks and low back pain with spinal stenosis. HISTORY: The patient is a 69-year-old female who has been followed in the pain clinic because of lumbar radiculopathy associated with spinal stenosis. She has undergone epidural steroid injections. These have proven beneficial. She received greater than 50% improvement after the last injection. She returns today for renewal of her medications. She rates her pain as 70-80% improved with her current medications of hydrocodone, Advil as well as with the epidural steroid injections. She has pain in the right upper leg and right buttocks area and low back discomfort. She feels that the pain is beginning to radiate down into her right leg more. The pain is becoming more constant. She rates it as 6/10 at this juncture, she would like to continue with a conservative approach. Walking, sitting, standing, climbing stairs can be problematic. ALLERGIES: LASIX, LISINOPRIL. CURRENT MEDICATIONS: Norvasc 5 mg, aspirin 81 mg, Lipitor 40 mg, Lexapro 20 mg, hydrocodone 5 mg, metformin 500 mg b.i.d., and nitroglycerin sublingual. PAIN CLINIC ASSESSMENT AND PQRS: 1. Height 5 feet 5 inches, weight 134 pounds, BMI is 22. 2. Vital Signs: Blood pressure 152/78, heart rate 68, respiratory rate 16, room air saturation is 95%, temperature 97.6. 3. Pain intensity 12/15. 4. Fall history: The patient has not fallen in the last 3 months. 5. Blood thinner. The patient is not on a blood thinning medication at this juncture. 6. Hypertension. The patient is being treated for hypertension. 7. Opioids greater than 6 weeks. The patient receives medication from her primary physician. 8. Risk assessment tool, low for opioid use. 9. Functional assessment tool has been reviewed. 10. Recreational drug use. The patient denies. 11. Tobacco: The patient has smoked for the last 40 years. Tobacco, -07/09 [place] [address] PAIN MANAGEMENT CONSULTATION Name: FAY HERNANDEZ Room: [facility]#: [id number] Admission: 02/09/20 Attend Phys: Ashley Smith MD Discharge: Date of : 48 Report #: [id number] packs per day. The patient denies use of recreational drugs. 12. Alcohol. The patient denies use of other than occasional alcoholic beverages. PHYSICAL EXAMINATION: GENERAL: The patient is a well-developed, well-nourished black female. She appears her stated age. She is alert and oriented x 3. Her affect is appropriate. Speech is fluent. HEENT: Normocephalic, atraumatic. Extraocular eye muscles intact. The patient does have a blindness in her right eye as a result of diabetes. NECK: Without adenopathy or JVD. HEART: Regular rate. LUNGS: Generally clear. MUSCULOSKELETAL: Upper extremity muscle strength judged to be 5-/5 for the major muscle groups in the upper extremity. The patient complains of some pain and discomfort in her right buttocks area. IMPRESSION: 1. History of lumbar radiculopathy in the L5-S1 dermatomal distribution in the past, improved with epidural steroid injection. 2. Diabetes. 3. Hypertension. 4. Heart disease. 5. Joint disease/arthritis. 6. Spinal stenosis. 7. Hyperlipidemia. 8. Right hip pain. RECOMMENDATIONS: We discussed treatment options with the patient. At this juncture, she feels her medications are going or doing reasonably well. She rates her pain as about 60-70% improved with her current medical regimen. She has returned today for renewal of the medication. A script for her medications of hydrocodone have been rewritten. She will continue with hydrocodone 7.5 mg 1 p.o. t.i.d. A script for 2 months of medication has been provided. She will call us if she has any concerns. We would like to thank you for letting us participate in her care. Hopefully, she will continue to do well. <ELECTRONICALLY SIGNED> By: Ashley Smith MD 02/23/20 0825 [id number]. Janes Smith MD /nt
== END ==
LOC: M.PC 02:18
PROVIDERS: ATTEND Anesthesiology Pain Medicine
DX: M48.00 Spinal stenosis, site unspecified (principal); E11.9 Type 2 diabetes mellitus without complications; I10 Essential (primary) hypertension; I51.9 Heart disease, unspecified; M19.90 Unspecified osteoarthritis, unspecified site; E78.5 Hyperlipidemia, unspecified; Z87.39 Personal history of other diseases of the musculoskeletal system and connective tissue; M25.551 Pain in right hip; Z88.8 Allergy status to other drugs, medicaments and biological substances; Z79.899 Other long term (current) drug therapy

== ENCOUNTER → 2020-04-07 | Outpatient (CLI) | payer MEDICARE ==
--- NOTE | 2020-04-19 14:22 | PAINCON ---
[address] [address] PAIN MANAGEMENT CONSULTATION Name: FAY HERNANDEZ Room: [facility]#: [id number] Admission: 04/07/20 Attend Phys: Ashley Smith MD Discharge: Date of : 48 Report #: [id number] THIS REPORT FOR: //name// cc: Didi Weathers MD, Katrina MD ~ THIS REPORT FOR: //name// CC: Didi Smith DATE OF SERVICE: 04/07/2020 CHIEF COMPLAINT: Right upper leg and right buttock pain. HISTORY: The patient is a 69-year-old female, who has been followed in the Pain Clinic because of lumbar radiculopathy. She has spinal stenosis. She has noticed recurrence of pain and discomfort. She rates it as a 6/10. She has had pain and discomfort for a number of years. She has undergone epidural steroid injections in the past and they have been helpful. At this point, she is having pain that is radiating down the right portion of her back into the lower buttocks and calf, and rates it as a 6/10. She notes activities, walking, sitting, standing, and climbing stairs can be problematic. She has noted improvement with use of medications. Heat and rest are beneficial as well. She has returned today for renewal of her medications. ALLERGIES: LASIX, LISINOPRIL. CURRENT MEDICATIONS: Norvasc 5 mg, aspirin 81 mg, Lipitor 40 mg, Lexapro 20 mg, hydrocodone 5 mg, metformin 500 mg b.i.d., nitroglycerin sublingual. PAIN CLINIC ASSESSMENT AND PQRS: 1. Height 5 feet 5 inches, weight 139 pounds, BMI is 23. 2. Vital signs: Blood pressure 162/60, heart rate 81, respiratory rate 16, room air saturation 96%, temperature 97.0. 3. Pain intensity: 6/10. 4. Fall history: The patient has not fallen in the last 3 months. 5. Blood thinner: The patient is not on a blood thinning medication. 6. Hypertension: The patient is being treated for hypertension. 7. Opioids greater than 6 weeks: The patient receives medications from her primary physician. 8. Risk assessment tool: Low for opioid use. 9. Recreational drug use: The patient denies. 10. Tobacco: The patient has smoked for the last 40 years, smokes 1-1/2 packs per day. 11. The patient denies use of recreational drugs. 12. Alcohol: The patient denies other [place] [address] PAIN MANAGEMENT CONSULTATION Name: FAY HERNANDEZ Room: [facility]#: [id number] Admission: 04/07/20 Attend Phys: Ashley Smith MD Discharge: Date of : 48 Report #: [id number]. PHYSICAL EXAMINATION: GENERAL: The patient is a well-developed, well-nourished, black female. She appears her stated age. She is alert and oriented x 3. Her affect is appropriate. Speech is fluent. The patient has facial covering on board. HEENT: Normocephalic, atraumatic. Extraocular eye muscles intact. The patient is blind on the right side as a result of diabetes. NECK: Without adenopathy or JVD. HEART: Regular rate. LUNGS: Clear to auscultation. MUSCULOSKELETAL: Upper extremity muscle strength is judged to be 5-/5 for the major muscle groups in the upper extremity. The patient complains of pain and discomfort in the right buttock area. IMPRESSION: 1. Right lumbar radicular pain in the L5-S1 dermatomal distribution. 2. Diabetes. 3. Hypertension. 4. Heart disease. 5. Joint disease/arthritis. 6. Spinal stenosis. 7. Hyperlipidemia. 8. Right hip pain. RECOMMENDATIONS: We discussed treatment options with the patient. At this juncture, we will continue with her medications. A script for her medications has been provided. The patient is aware that opioid medications can become less effective as time goes on. She is taking her medications as prescribed. She keeps her medications in a guarded area. She is aware that some people have developed dependency as well as addiction and have as a result of use of medications. A script for her medication has been provided. She will continue with hydrocodone 7.5 mg 1 p.o. t.i.d. A script for 2 months of medications has been provided. We would like to thank you for letting us participate in her care. We hope she continues to improve. <ELECTRONICALLY SIGNED> By: Ashley Smith MD 04/19/20 1422 [id number]. Janes Smith MD /urban
== END ==
LOC: M.PC 09:50
PROVIDERS: ATTEND Anesthesiology Pain Medicine
DX: M54.5 Low back pain (principal); E11.9 Type 2 diabetes mellitus without complications; M19.90 Unspecified osteoarthritis, unspecified site; M48.00 Spinal stenosis, site unspecified; E78.5 Hyperlipidemia, unspecified; M25.551 Pain in right hip; I11.9 Hypertensive heart disease without heart failure; Z88.8 Allergy status to other drugs, medicaments and biological substances; Z68.23 Body mass index [BMI] 23.0-23.9, adult; Z79.891 Long term (current) use of opiate analgesic; Z79.899 Other long term (current) drug therapy

== ENCOUNTER → 2020-07-28 | Outpatient (CLI) | payer MEDICARE | LOC: M.PC 08:38 | PROVIDERS: ATTEND Anesthesiology Pain Medicine | DX: M25.551 Pain in right hip (principal); M25.552 Pain in left hip; M54.16 Radiculopathy, lumbar region; E11.9 Type 2 diabetes mellitus without complications; I10 Essential (primary) hypertension; I50.9 Heart failure, unspecified; M19.90 Unspecified osteoarthritis, unspecified site; M48.061 Spinal stenosis, lumbar region without neurogenic claudication; E78.5 Hyperlipidemia, unspecified ==

== ENCOUNTER → 2020-09-22 | Outpatient (CLI) | payer MEDICARE, OTHER, MEDICAID | LOC: M.PC 09:40 | PROVIDERS: ATTEND Anesthesiology Pain Medicine | DX: M54.17 Radiculopathy, lumbosacral region (principal); E11.9 Type 2 diabetes mellitus without complications; I10 Essential (primary) hypertension; M19.90 Unspecified osteoarthritis, unspecified site; M48.00 Spinal stenosis, site unspecified; E78.5 Hyperlipidemia, unspecified; M25.551 Pain in right hip ==

== ENCOUNTER → 2020-11-15 | Outpatient (CLI) | payer MEDICARE, MEDICAID | END | disposition home or self-care (01) | LOC: M.PC 09:57 | PROVIDERS: ATTEND Anesthesiology Pain Medicine | DX: M54.16 Radiculopathy, lumbar region (principal); M48.061 Spinal stenosis, lumbar region without neurogenic claudication; G89.29 Other chronic pain; I10 Essential (primary) hypertension; E11.9 Type 2 diabetes mellitus without complications; E78.5 Hyperlipidemia, unspecified; M19.90 Unspecified osteoarthritis, unspecified site; F32.9 Major depressive disorder, single episode, unspecified; Z98.890 Other specified postprocedural states; Z79.899 Other long term (current) drug therapy; Z87.01 Personal history of pneumonia (recurrent); Z88.8 Allergy status to other drugs, medicaments and biological substances; Z91.040 Latex allergy status; Z90.710 Acquired absence of both cervix and uterus ==

== ENCOUNTER → 2021-01-10 | Outpatient (CLI) | payer MEDICARE, MEDICAID | LOC: M.PC 10:44 | PROVIDERS: ATTEND Anesthesiology Pain Medicine | DX: M54.17 Radiculopathy, lumbosacral region (principal); M48.07 Spinal stenosis, lumbosacral region; E11.9 Type 2 diabetes mellitus without complications; I10 Essential (primary) hypertension; E78.5 Hyperlipidemia, unspecified; M25.551 Pain in right hip; F17.200 Nicotine dependence, unspecified, uncomplicated; F32.9 Major depressive disorder, single episode, unspecified; Z79.84 Long term (current) use of oral hypoglycemic drugs; Z79.899 Other long term (current) drug therapy; Z79.82 Long term (current) use of aspirin; Z91.040 Latex allergy status; Z88.1 Allergy status to other antibiotic agents ==

== ENCOUNTER → 2021-03-07 | Outpatient (CLI) | payer MEDICARE, MEDICAID | LOC: M.PC 10:38 | PROVIDERS: ATTEND Anesthesiology Pain Medicine | DX: M54.16 Radiculopathy, lumbar region (principal); M48.00 Spinal stenosis, site unspecified; I10 Essential (primary) hypertension; E11.9 Type 2 diabetes mellitus without complications; J18.9 Pneumonia, unspecified organism; F32.9 Major depressive disorder, single episode, unspecified; M19.90 Unspecified osteoarthritis, unspecified site; E78.5 Hyperlipidemia, unspecified; M25.551 Pain in right hip; I51.9 Heart disease, unspecified; G89.29 Other chronic pain; Z79.891 Long term (current) use of opiate analgesic; Z88.8 Allergy status to other drugs, medicaments and biological substances; Z87.891 Personal history of nicotine dependence; Z90.710 Acquired absence of both cervix and uterus ==

== ENCOUNTER → 2021-05-02 | Outpatient (CLI) | payer MEDICARE, MEDICAID | LOC: M.PC 10:45 | PROVIDERS: ATTEND Anesthesiology Pain Medicine | DX: M54.16 Radiculopathy, lumbar region (principal); E11.9 Type 2 diabetes mellitus without complications; I10 Essential (primary) hypertension; M48.00 Spinal stenosis, site unspecified; E78.5 Hyperlipidemia, unspecified; M25.551 Pain in right hip ==

== ENCOUNTER → 2021-05-16 | Outpatient (CLI) | payer MEDICARE, MEDICAID ==
[~2021-05-16] MED LIST changes: +DIFLUCAN150 MG PO; +MACROBID 100 M100 M1 PO
== END | disposition home or self-care (01) ==
LOC: M.PC 10:13
PROVIDERS: ATTEND Anesthesiology Pain Medicine
DX: M54.16 Radiculopathy, lumbar region (principal); G89.29 Other chronic pain; I10 Essential (primary) hypertension; E11.9 Type 2 diabetes mellitus without complications; M19.90 Unspecified osteoarthritis, unspecified site; E78.5 Hyperlipidemia, unspecified; M48.061 Spinal stenosis, lumbar region without neurogenic claudication; F32.9 Major depressive disorder, single episode, unspecified; Z98.890 Other specified postprocedural states; Z79.899 Other long term (current) drug therapy; Z90.710 Acquired absence of both cervix and uterus; Z88.8 Allergy status to other drugs, medicaments and biological substances; Z91.040 Latex allergy status

== ENCOUNTER 2021-05-17 21:02 | Emergency (ER) | payer MEDICARE, MEDICAID ==
[~2021-05-17] VITALS: Ht 165.1 cm; Wt 66.7 kg
[~2021-05-17 21:02] MED LIST changes: -DIFLUCAN150 MG PO; -MACROBID 100 M100 M1 PO
[2021-05-18 00:16] VITALS: BP 144/87
== END 2021-05-18 00:16 | disposition home or self-care (01) ==
LOC: M.ERS 21:02
DX: S00.83XA Contusion of other part of head, initial encounter (principal); S06.0X9A Concussion with loss of consciousness of unspecified duration, initial encounter; E11.9 Type 2 diabetes mellitus without complications; F32.9 Major depressive disorder, single episode, unspecified; Z79.899 Other long term (current) drug therapy; Z90.710 Acquired absence of both cervix and uterus; Z91.040 Latex allergy status; Z88.8 Allergy status to other drugs, medicaments and biological substances; W22.09XA Striking against other stationary object, initial encounter; Y93.89 Activity, other specified; Y92.89 Other specified places as the place of occurrence of the external cause; Y99.8 Other external cause status

== ENCOUNTER 2021-05-23 07:58 | Emergency (ER) | payer MEDICARE, MEDICAID ==
[~2021-05-23] VITALS: Ht 165.1 cm; Wt 66.7 kg
[2021-05-23 08:52] LABS: ABSOLUTE LYMPHOCYTES 1.3 thou/uL (0.8-5.3); ABSOLUTE MONOCYTES 0.7 thou/uL (0.0-1.2); ABSOLUTE NEUTROPHILS 7.3 thou/uL (1.6-8.1); BASOPHILS 0.4 %; EOSINOPHILS 0.2 %; HEMATOCRIT 43.7 % (37.0-47.0); HEMOGLOBIN 14.6 gm/dL (12.0-15.0); LYMPHOCYTES 13.9 %; MCH 29.5 pg (26.0-34.0); MCHC 33.5 g/dL (28.0-37.0); MCV 88.1 fL (80.0-100.0); MONOCYTES 7.8 %; NUCLEATED RBCS 0 /100WBC; PLATELET COUNT* 347 thou/uL (150-400); POLYS 77.7 %; RBC 4.95 mil/uL (4.20-5.00); RDW-CV 13.2 % (10.5-14.5); WBC 9.4 thou/uL (4.0-11.0)
[2021-05-23 09:28] LABS: URINE BILIRUBIN NEGATIVE (Negative); URINE BLOOD TRACE (Negative); URINE CLARITY CLEAR; URINE COLOR YELLOW; URINE GLUCOSE-RANDOM 3+ (Negative); URINE KETONES 2+ (Negative); URINE LEUKOCYTES TRACE (Negative); URINE NITRITE NEGATIVE (Negative); URINE PROTEIN 1+ (Negative); URINE SPECIFIC GRAVITY <= 1.005 (1.005-1.030); URINE UROBILINOGEN 0.2 E.U./dl (0.2-1.0)
[2021-05-23 10:02] LABS: CALCIUM 9.4 mg/dL (8.5-10.1); POTASSIUM 4.8 mmol/L (3.5-5.1)
[2021-05-23 10:06] LABS: URINE WBC 6-15 Few /HPF (0-5)
[2021-05-23 10:07] LABS: SQUAMOUS 0-3 Few /LPF (0-3)
[2021-05-23 10:08] LABS: BACTERIA 1-9 Few /HPF (None Seen); URINE RBC 0-2 Rare /HPF (0-2); YEAST Present (None Seen)
[2021-05-23 10:10] LABS: CASTS None Seen /LPF (None Seen); CRYSTALS None Seen /LPF (None Seen)
[2021-05-23] MEDS ORDERED: DIFLUCAN150 MG PO (10:44)
[2021-05-23] MEDS ORDERED: MACROBID 100 M100 M1 PO (10:44)
[2021-05-23 11:00] VITALS: BP 160/67
--- NOTE | 2021-05-23 12:11 | EKG ---
[place] [address] ELECTROCARDIOGRAM REPORT Name: FAY HERNANDEZ Room: [facility]#: [id number] Admission: 05/23/21 Attend Phys: Discharge: Date of : 48 Date of Service: 05/23/21 0856 Report #: [id number] THIS REPORT FOR: //name// [facility] ED Test Date: 2021-05-23 Test Time: 08:56:31 Pat Name: FAY HERNANDEZ Department: Room: Gender: [employer]: [facility] : 1950 Requested By: Leno Lauren Order Number: [id number] MD: Maik Giordano Measurements Intervals [place] Rate: 70 P: 78 WA: 116 QRS: 63 QRSD: 87 T: 13 QT: 449 QTc: 485 Interpretive Statements Sinus rhythm Borderline short WA interval Borderline T wave abnormalities Borderline prolonged QT interval Compared to ECG 01/15/2018 08:16:23 T-wave abnormality now present Electronically Signed On 05-23-2021 12:11:07 [employer] by Maik Giordano [email or web address] <ELECTRONICALLY SIGNED> By: Maik Giordano MD, FACC 05/23/21 1211 0856 0856 Maik Giordano MD, [facility] /EPI
== END 2021-05-23 11:01 | disposition home or self-care (01) ==
LOC: M.ERS 07:58
PROVIDERS: Emergency Medicine
DX: N39.0 Urinary tract infection, site not specified (principal); F32.9 Major depressive disorder, single episode, unspecified; Z90.710 Acquired absence of both cervix and uterus; Z91.040 Latex allergy status; Z88.8 Allergy status to other drugs, medicaments and biological substances; Z79.899 Other long term (current) drug therapy; E11.65 Type 2 diabetes mellitus with hyperglycemia

== ENCOUNTER → 2021-06-27 | Outpatient (CLI) | payer MEDICARE, MEDICAID ==
[~2021-06-27] MED LIST changes: +DIFLUCAN150 MG PO; +MACROBID 100 M100 M1 PO
== END ==
LOC: M.PC 09:14
PROVIDERS: ATTEND Anesthesiology Pain Medicine
DX: M54.50 Low back pain, unspecified (principal); E11.9 Type 2 diabetes mellitus without complications; I11.9 Hypertensive heart disease without heart failure; M19.90 Unspecified osteoarthritis, unspecified site; E78.5 Hyperlipidemia, unspecified; M25.551 Pain in right hip; M48.00 Spinal stenosis, site unspecified

== ENCOUNTER → 2021-08-22 | Outpatient (CLI) | payer MEDICARE, MEDICAID ==
[~2021-08-22] MED LIST changes: +HYDROCODON-ACE1 EAC5 PO; +VITAMIN D3250 MC1 PO
== END ==
LOC: M.PC 09:56
PROVIDERS: ATTEND Anesthesiology Pain Medicine
DX: M54.16 Radiculopathy, lumbar region (principal); E11.9 Type 2 diabetes mellitus without complications; I11.9 Hypertensive heart disease without heart failure; M48.00 Spinal stenosis, site unspecified; E78.5 Hyperlipidemia, unspecified; M25.551 Pain in right hip; F17.200 Nicotine dependence, unspecified, uncomplicated; Z88.8 Allergy status to other drugs, medicaments and biological substances; Z79.84 Long term (current) use of oral hypoglycemic drugs; Z79.82 Long term (current) use of aspirin; Z79.899 Other long term (current) drug therapy